=== PATIENT | female | born 1985 | race Caucasian/White ===

== ENCOUNTER 2021-02-16 18:52 | Emergency (ER) | payer SELFPAY ==
[~2021-02-16] VITALS: Ht 170.2 cm; Wt 86.2 kg
[2021-02-16 19:12] VITALS: BP 148/87
--- NOTE | 2021-02-16 20:07 | NUR ---
PATIENT BEING EVALUATED BY GEE GORMAN IN [facility].
[2021-02-16] MEDS ORDERED: HYDROcodone/APAP 5/325 MG 1 TAB TAB PO ONE (20:10)
[2021-02-16] MEDS ORDERED: diazePAM 5 MG TAB PO ONE (20:10)
--- NOTE | 2021-02-16 20:10 | NUR ---
SEE COMPLETE ASSESSMENT FOR FURTHER INFORMATION
--- NOTE | 2021-02-16 20:34 | NUR ---
PT TAKEN TO [facility] FROM [facility]
--- NOTE | 2021-02-16 20:34 | NUR ---
Margot pak in ED - 02/16/21 at 2035 by CASIE PT TAKEN TO [facility] FROM [facility]
--- NOTE | 2021-02-16 20:40 | NUR ---
PT RETURN FROM [facility] TO [facility]
[2021-02-16] MEDS ORDERED: IBUP-1842 PO (20:47)
[2021-02-16] MEDS ORDERED: METH-1681 PO (20:47)
[2021-02-16 21:39] VITALS: BP 132/78
--- NOTE | 2021-02-16 21:39 | NUR ---
Patient discharged with v/s stable. Written and verbal after care instructions given and explained. Patient alert, oriented and verbalized understanding of instructions. Ambulatory with steady gait. All questions addressed prior to discharge. ID band removed. Patient advised to follow up with PMD. Rx of ROBAXIN, IBUPROFEN given. Patient educated on indication of medication including possible reaction and side effects. Opportunity to ask questions provided and answered. WORK NOTE GIVEN BY ERMD. PATIENT GIVEN RIDE HOME BY .
== END 2021-02-16 21:39 | disposition home or self-care (01) ==
LOC: MED 18:52 → EDBD 18:52 → MED 21:39
DX: S13.9XXA Sprain of joints and ligaments of unspecified parts of neck, initial encounter (principal); S40.212A Abrasion of left shoulder, initial encounter; R51.9 Headache, unspecified; R10.9 Unspecified abdominal pain; Z79.899 Other long term (current) drug therapy; V89.2XXA Person injured in unspecified motor-vehicle accident, traffic, initial encounter; Y93.89 Activity, other specified; Y92.89 Other specified places as the place of occurrence of the external cause; Y99.8 Other external cause status
CPT/HCPCS: 71045; 81025; 99283; Q0092